=== PATIENT | male | born 2000 | race African-American/Black ===

== ENCOUNTER 2021-05-15 19:49 | Emergency (ER) | payer BC ==
[~2021-05-15] VITALS: Ht 190.5 cm; Wt 195.0 kg
[2021-05-15] MEDS ORDERED: NEOMY/BACITR/POLYMYXIN OINT PACKET. TP ONE ×2 (20:39→20:45)
--- NOTE | 2021-05-15 20:40 | PHYS DOC ---
Past History Additional Past Medical Histor: obesity (HELIO MILLER APRN) Past Surgical History: Tonsillectomy (HELIO MILLER APRN) Alcohol Use: Occasionally (HELIO MILLER APRN) General Adult EDM: Chief Complaint: LOWEREXTREMITY INJURY HPI: HPI: Patient is a 20-year-old male who presents to the ER today for left lower extremity abrasion. Patient reports that he was mowing his friend's lawn yesterday when he stepped into an area that had a hole and he cut his leg on a curb. Patient reports that he has mild pain and is able to bear weight and ambulate. He reports that he is concerned because he is a diabetic that the abrasion on his leg may be infected. Patient reports that he takes Levemir, Metformin, NovoLog, amlodipine but has not taken his medication for at least a month. Patient is requesting a finger blood sugar check. Patient denies fevers, difficulty ambulating or bearing weight, decreased sensation to extremity, decreased range of motion. (HELIO MILLER APRN) Review of Systems: Review of Systems: 14 body systems of the review of systems have been reviewed. See HPI for pertinent positive and negative responses, otherwise all other systems are negative, nonpertinent or noncontributory (HELIO MILLER APRN) Physical Exam: PE: Constitutional: Well developed, well nourished, no acute distress, non-toxic appearance. [] HENT: Normocephalic, atraumatic Eyes: PERRL, conjunctiva normal, no discharge. [] Neck: Normal range of motion, no stridor Cardiovascular: Normal peripheral perfusion Lungs & Thorax: Normal work of breathing, no tachypnea Skin: Warm, dry, no erythema, no rash, 4 cm hematoma noted to left anterior lower extremity, less than 0.5 cm abrasion noted to left anterior lower extremit y, no redness, warmth, drainage noted to site, range of motion intact, neuro intact, patient ambulatory with a steady gait.. [] Back: No tenderness, normal range of motion Extremities: No tenderness, no cyanosis, no clubbing, ROM intact, no edema. [] Neurologic: Alert and oriented X 3, normal motor function, normal sensory function, no focal deficits noted. [] Psychologic: Affect normal, judgement normal, mood normal. [] (HELIO MILLER APRN) Current Patient Data: Vital Signs: Vital Signs Date Time Temp Pulse Resp B/P (MAP) Pulse Ox O2 Delivery O2 Flow Rate FiO2 05/15/21 19:49 97.9 106 20 167/91 94 Room Air (HELIO MILLER APRN) EKG: EKG: [] (HELIO MILLER APRN) Radiology/Procedures: Radiology/Procedures: [] (HELIO MILLER APRN) Heart Score: C/O Chest Pain: No Risk Factors: Risk Factors: DM, Current or recent (<one month) smoker, HTN, HLP, family history of CAD, obesity. Risk Scores: Score 0 - 3: 2.5% MACE over next 6 weeks - Discharge Home Score 4 - 6: 20.3% MACE over next 6 weeks - Admit for Clinical Observation Score 7 - 10: 72.7% MACE over next 6 weeks - Early Invasive Strategies (HELIO MILLER APRN) Course & Med Decision Making: Course & Med Decision Making Pertinent Labs and Imaging studies reviewed. (See chart for details) Patient is a 20-year-old male being seen in the ER today for an abrasion to his left lower leg that occurred after he fell while cutting grass. Patient was offered an x-ray of the lower extremity but he declined stating that he is walking on it so he does not think it is broken. Abrasion to his leg does not show any signs of infection. Triple antibiotic ointment and a dressing was placed on the abrasion. Patient is requesting a finger blood sugar check because he does not take any of his medications. Patient's blood sugar in the ER was 410. He reports that he takes Levemir, Metformin, NovoLog but has not taken it. Patient was offered work-up in the ER and treatment for his elevated blood sugar but patient refused stating that he would "go home and take his medications". I discussed with patient the importance of taking his medications and that not taking his medications at home can cause worsening of his illness, disability, and risky scenario . Patient is aware of the risks and states that he wants to take his medications at home. In the ER his blood pressure was 167/91. He takes amlodipine but has not taken it. (HELIO MILLER APRN) Course & Med Decision Making Did not see or evaluate patient. Agree with [facility]IRS MAID's work-up and disposition per note. (OFELIA ZIEGLER MD) Femion Disclaimer: Carlos Disclaimer: This electronic medical record was generated, in whole or in part, using a voice recognition dictation system. (HELIO MILLER APRN) Departure Departure: Impression: Primary Impression: Abrasion Additional Impression: Hyperglycemia Disposition: HOME / SELF CARE / HOMELESS Condition: GOOD Referrals: PCP,UNKNOWN (PCP) Patient Instructions: Abrasions, Hyperglycemia Additional Instructions: You were seen in the ER for an injury to your left lower leg. The wound was dressed with triple antibiotic ointment and a dressing. When at home you can apply Polysporin/bacitracin and keep a Band-Aid on it. Monitor for any signs of infection such as redness, warmth, swelling, drainage. For your pain you can take Tylenol/ibuprofen. While in the ER you are noted to have an elevated blood pressure and elevated blood sugar. It is necessary that you go home and take your medications and you continue take your medications as directed at home. Not taking these medications can lead to worsening of your illness, disability, and . Please follow-up with your primary care provider as soon as possible regarding your diabetes and hypertension. Please return to the ER if you develop decreased range of motion of leg, decreased sensation of leg, increased pain, any of the previously mentioned signs of infection, chest pain, shortness of breath. EMERGENCY DEPARTMENT GENERAL DISCHARGE INSTRUCTIONS Thank you for coming to [facility] (ED) today and trusting us with you care. We trust that you had a positivie experience in our Emergency Department. If you wish to speak to the department management, you may call the director at [phone]. YOUR FOLLOW UP INSTRUCTIONS ARE FOLLOWS: 1. Do you have a private Doctor? If you do not have a private doctor, please ask for a resource list of physicians or clinics that may be able to assist you with follow up care. 2. The Emergency Physician has interpreted your x-rays. The X-Ray specialist will also review them. If there is a change in the findings, you will be notified in 48 hours when at all possible. 3. A lab test or culture has been done, your results will be reviewed and you will be notified if you need a change in treatment. ADDITIONAL INSTRUCTIONS AND INFORMATION: 1. Your care today has been supervised by a physician who is specially trained in emergency care. Many problems require more than one evaluation for a complete diagnosis and treatment. We recommend that you schedule your follow up appointment as recommended to ensure complete treatment of you illness or injury. If you are unable to obtain follow up care and continue to have a problem, or if your condition worsens, we recommend that you return to the ED. 2. We are not able to safely determine your condition over the phone nor are we able to give sound medical advice over the phone. For these safety reasons, if you call for medical advice we will ask you to come to the ED for further evaluation. 3. If you have any questions regarding these discharge instructions please call the ED at [phone]. SAFETY INFORMATION: In the interest of safety, wellness, and injury prevention; we encourage you to wear your sealbelt, if you smoke; quite smoking, and we encourage family to use a protective helmet for bicycling and other sporting events that present an increased risk for head injury. IF YOUR SYMPTOMS WORSEN OR NEW SYMPTOMS DEVELOP, OR YOU HAVE CONCERNS ABOUT YOUR CONDITION; OR IF YOUR CONDITION WORSENS WHILE YOU ARE WAITING FOR YOUR FOLLOW UP APPOINTMENT; EITHER CONTACT YOUR PRIMARY CARE DOCTOR, THE PHYSICIAN WHOSE NAME AND NUMBER YOU WERE GIVEN, OR RETURN TO THE ED IMMEDIATELY. HELIO MILLER APRN May 15, 2021 20:40 OFELIA ZIEGLER MD May 16, 2021 00:42
[2021-05-15 21:10] VITALS: BP 150/83
== END 2021-05-15 21:10 | disposition home or self-care (01) ==
LOC: ER 19:49
DX: S80.12XA Contusion of left lower leg, initial encounter (principal); E11.65 Type 2 diabetes mellitus with hyperglycemia; E66.9 Obesity, unspecified; Z68.43 Body mass index [BMI] 50.0-59.9, adult; W22.8XXA Striking against or struck by other objects, initial encounter; Y93.89 Activity, other specified; Y92.89 Other specified places as the place of occurrence of the external cause; Y99.8 Other external cause status
CPT/HCPCS: 82947; 99283

== ENCOUNTER 2021-06-08 22:35 | Emergency (ER) | payer BC ==
[~2021-06-08] VITALS: Ht 190.5 cm; Wt 187.0 kg
[2021-06-08 22:50] VITALS: BP 157/83
[2021-06-08] MEDS ORDERED: IV NORMAL SALINE 1,000ML 1,000 ML IV ONE (23:00)
--- NOTE | 2021-06-08 23:03 | PHYS DOC ---
Past History Additional Past Medical Histor: obesity Past Surgical History: Tonsillectomy Alcohol Use: Occasionally General Adult EDM: Chief Complaint: HYPERGLYCEMIA HPI: HPI: 20-year-old male presents with concern for hyperglycemia. Patient is a diabetic and he supposed to be on long-acting and short-acting insulin. He has felt like his heart is running fast and he is very fatigued. He has felt this way when he has had elevated blood sugar in the past. He tells me he has not been taking his insulin because "I have been too lazy". He denies fever or chills. He has no other specific complaints. Blood sugar on arrival more than 400 Review of Systems: Review of Systems: Constitutional: Fatigue Eyes: Denies change in visual acuity HENT: Denies nasal congestion or sore throat Respiratory: Denies cough or shortness of breath Cardiovascular: Denies chest pain or edema GI: Denies abdominal pain, nausea, vomiting, bloody stools or diarrhea : Denies dysuria Musculoskeletal: Denies back pain or joint pain Integument: Denies rash Neurologic: Denies headache, focal weakness or sensory changes Endocrine: Polyuria and polydipsia Lymphatic: Denies swollen glands Psychiatric: Denies depression or anxiety Current Medications: Current Meds: Current Medications Medications (Trade) Dose Ordered Sig/Vandana Start Time Stop Time Status Last Admin Dose Admin Sodium Chloride 1,000 ml @ 1,000 mls/hr 1X ONCE 06/08/21 23:00 06/08/21 23:59 Allergies: Allergies: Allergies Coded Allergies Type Severity Reaction Last Updated Verified No Known Drug Allergies 05/16/21 No Physical Exam: PE: Constitutional: Well developed, well nourished, obese, no acute distress, non- toxic appearance. [] HENT: Normocephalic, atraumatic, bilateral external ears normal, oropharynx moist, no oral exudates, nose normal. [] Eyes: PERRLA, EOMI, conjunctiva normal, no discharge. [] Neck: Normal range of motion, no tenderness, supple, no stridor. [] Cardiovascular: Heart rate 112, regular rhythm, no murmur [] Lungs & Thorax: Bilateral breath sounds clear to auscultation [] Abdomen: Bowel sounds normal, soft, no tenderness, no masses, no pulsatile masses. [] Skin: Warm, dry, no erythema, no rash. [] Back: No tenderness, no CVA tenderness. [] Extremities: No tenderness, no cyanosis, no clubbing, ROM intact, no edema. [] Neurologic: Alert and oriented X 3, normal motor function, normal sensory function, no focal deficits noted. [] Psychologic: Affect normal, judgement normal, mood normal. [] EKG: EKG: [] Radiology/Procedures: Radiology/Procedures: [] Heart Score: C/O Chest Pain: N/A Risk Factors: Risk Factors: DM, Current or recent (<one month) smoker, HTN, HLP, family history of CAD, obesity. Risk Scores: Score 0 - 3: 2.5% MACE over next 6 weeks - Discharge Home Score 4 - 6: 20.3% MACE over next 6 weeks - Admit for Clinical Observation Score 7 - 10: 72.7% MACE over next 6 weeks - Early Invasive Strategies Course & Med Decision Making: Course & Med Decision Making Pertinent Labs and Imaging studies reviewed. (See chart for details) The patient's labs are unremarkable. He does a very high blood sugar. We have given him a liter normal saline and 10 units of insulin. His blood sugar is improved to 327. I will give him an additional 10 units and discharge him to home. I have stressed the importance of taking his insulin as prescribed. He is stable for discharge at this time. [] Femion Disclaimer: Carlos Disclaimer: This electronic medical record was generated, in whole or in part, using a voice recognition dictation system. Departure Departure: Impression: Primary Impression: Hyperglycemia Disposition: HOME / SELF CARE / HOMELESS Condition: IMPROVED Referrals: STERLING BECKFORD MD (PCP) Patient Instructions: Hyperglycemia, [id number] WENDY LINARES DO Jun 08, 2021 23:03
[2021-06-08 23:28] LABS: BASO # 0.2 x10^3/uL (0.0-0.2); BASO % 1 % (0-3); EOS # 0.1 x10^3/uL (0.0-0.7); EOS % 1 % (0-3); HEMATOCRIT 44.7 % (39.0-53.0); HEMOGLOBIN 13.7 g/dL (13.0-17.5); LYMPH # 4.6 x10^3/uL (1.0-4.8); LYMPH % 34 % (24-48); MEAN CORPUSCULAR HEMOGLOBIN 26 pg (25-35); MEAN CORPUSCULAR HGB CONC 31 g/dL (31-37); MEAN CORPUSCULAR VOLUME 84 fL (79-100); MONO # 1.1 x10^3/uL (0.0-1.1); MONO % 8 % (0-9); NEUT # 7.4 x10^3uL (1.8-7.7); NEUT % 56 % (31-73); PLATELET COUNT 196 x10^3/uL (140-400); RED BLOOD COUNT 5.31 x10^6/uL (4.30-5.70); RED CELL DISTRIBUTION WIDTH 13.8 % (11.5-14.5)
[2021-06-08] MEDS ORDERED: INSULIN REGULAR 100 UNIT/ML 3ML VIAL. IV ONE (23:30)
[2021-06-08 23:32] LABS: WHITE BLOOD COUNT 13.4 x10^3/uL (4.0-11.0)
[2021-06-08 23:37] LABS: CALCIUM 8.9 mg/dL (8.5-10.1); CREATININE 0.8 mg/dL (0.7-1.3); GFR 150.7; POTASSIUM 4.2 mmol/L (3.5-5.1)
[2021-06-08 23:38] LABS: BILIRUBIN,URINE NEG (NEG); CLARITY,URINE CLEAR; COLOR,URINE STRAW; GLUCOSE,URINE >=1000 mg/dL (NEG)
[2021-06-08 23:39] LABS: BACTERIA,URINE 0 /HPF (0-FEW); NITRITE,URINE NEG (NEG); UROBILINOGEN,URINE 0.2 mg/dL (0.2 mg/dL); WBC,URINE RARE /HPF (0-4)
[2021-06-08 23:43] LABS: ALBUMIN 3.8 g/dL (3.4-5.0); ALBUMIN/GLOBULIN RATIO 1.2 (1.0-1.7); TOTAL BILIRUBIN 0.5 mg/dL (0.2-1.0)
[2021-06-09] MEDS ORDERED: INSULIN REGULAR 100 UNIT/ML 3ML VIAL. SQ ONE (01:00)
[2021-06-09] MEDS ORDERED: INSULIN REGULAR 100 UNIT/ML 3ML VIAL. IV ONE (01:00)
== END 2021-06-09 01:00 | disposition home or self-care (01) ==
LOC: ER 22:35
DX: E11.65 Type 2 diabetes mellitus with hyperglycemia (principal); E66.9 Obesity, unspecified; Z68.43 Body mass index [BMI] 50.0-59.9, adult
CPT/HCPCS: 36415; 80053; 81001; 82947; 85025; 96361; 96372; 96374; 99284; J1815; J7030; 99283